=== PATIENT | male | born 1995 | race African-American/Black ===

== ENCOUNTER → 2017-03-19 | Outpatient (CLI) | payer BC, MEDICAID ==
[2017-03-19 13:36] LABS: CLARITY URINE CLEAR (CLEAR); COLOR URINE YELLOW (YELLOW); GLUCOSE URINE NEGATIVE (NEGATIVE); KETONES URINE NEGATIVE (NEGATIVE); LEUKOCYTE ESTERASE URINE NEGATIVE (NEGATIVE); NITRITE URINE NEGATIVE (NEGATIVE); OCCULT BLOOD URINE NEGATIVE (NEGATIVE); PROTEIN URINE NEGATIVE (NEGATIVE); SPECIFIC GRAVITY URINE 1.019 (1.005-1.030); UROBILINOGEN URINE 0.2 E.U./dL (0.2-1.0)
[2017-03-19 14:02] LABS: HEMATOCRIT. 43.2 % (42.0-52.0); HEMOGLOBIN. 14.9 g/dL (14.0-18.0); MEAN CORPUSCULAR HEMOGLOBIN 30.2 pg (28.0-32.0); MEAN CORPUSCULAR VOLUME 87.8 fL (80.0-94.0); MEAN PLATELET VOLUME 7.8 fl (7.4-10.4); PLATELET 239 x1000/uL (130-400); RED BLOOD CELL COUNT 4.92 mill/uL (4.7-6.1); RED CELL DISTRIBUTION WIDTH 13.4 % (11.6-14.6)
[2017-03-19 14:19] LABS: CARBON DIOXIDE 29 mEq/L (21-32); CHLORIDE 105 mEq/L (98-107); T4 FREE 1.06 ng/dL (0.76-1.46); TOTAL IRON BINDING CAPACITY 284 ug/dL (250-450)
[2017-03-19 14:34] LABS: PLATELET ESTIMATE NORMAL
[2017-03-20 09:08] LABS: VITAMIN D 25-OH 16.2 ng/mL (30.0-100.0)
[2017-03-20 12:20] LABS: FOLIC ACID (FOLATE) SERUM 16.3 ng/mL (>5.38)
[2017-03-23 09:06] LABS: THYROXINE BINDING GLOBULIN 24 ug/mL (13-39)
== END | disposition home or self-care (01) ==
LOC: LAB 13:14
PROVIDERS: ATTEND Internal Medicine Geriatric Medicine
DX: Z00.00 Encounter for general adult medical examination without abnormal findings (principal)
CPT/HCPCS: 36415; 80053; 81003; 82306; 82728; 82746; 83036; 83540; 83550; 84439; 84442; 84443; 84481; 85025; 86592; 86803; 87086; 87186

== ENCOUNTER 2017-08-19 10:20 | Emergency (ER) | payer BC, MEDICAID ==
[~2017-08-19] VITALS: Ht 175.3 cm; Wt 80.0 kg
[2017-08-19 11:05] LABS: HEMATOCRIT. 41.5 % (42.0-52.0); HEMOGLOBIN. 14.3 g/dL (14.0-18.0); MEAN CORPUSCULAR HEMOGLOBIN 29.9 pg (28.0-32.0); MEAN CORPUSCULAR VOLUME 87.1 fL (80.0-94.0); MEAN PLATELET VOLUME 7.3 fl (7.4-10.4); PLATELET 223 x1000/uL (130-400); RED BLOOD CELL COUNT 4.77 mill/uL (4.7-6.1)
[2017-08-19 11:10] LABS: CHLORIDE 105 mEq/L (98-107)
[2017-08-19 11:14] LABS: ETHANOL BLOOD < 10 mg/dL
[2017-08-19 11:26] LABS: PLATELET ESTIMATE NORMAL
[2017-08-19 13:12] LABS: CLARITY URINE CLEAR (CLEAR); COLOR URINE YELLOW (YELLOW)
[2017-08-19 13:13] LABS: KETONES URINE NEGATIVE (NEGATIVE); LEUKOCYTE ESTERASE URINE NEGATIVE (NEGATIVE); NITRITE URINE NEGATIVE (NEGATIVE); OCCULT BLOOD URINE NEGATIVE (NEGATIVE); PROTEIN URINE NEGATIVE (NEGATIVE); SPECIFIC GRAVITY URINE 1.017 (1.005-1.030); UROBILINOGEN URINE 0.2 E.U./dL (0.2-1.0)
[2017-08-19 13:30] LABS: *AMPHETAMINES SCREEN URINE NEGATIVE (NEGATIVE); *BARBITURATES SCREEN URINE NEGATIVE (NEGATIVE); *BENZODIAZEPINES SCREEN URINE NEGATIVE (NEGATIVE); *COCAINE SCREEN URINE NEGATIVE (NEGATIVE); CANNABINOID URINE SCREEN PRESUMTIVE POSITIVE (NEGATIVE); METHADONE URINE SCREEN NEGATIVE (NEGATIVE); OPIATES URINE SCREEN NEGATIVE (NEGATIVE); PHENCYCLIDINE URINE SCREEN NEGATIVE (NEGATIVE)
[2017-08-19 15:30] VITALS: BP 131/87
[2017-08-19] MEDS ORDERED: MIRTAZAPINE 15MG TABLET PO NR (15:30)
[2017-08-19] MEDS ORDERED: DIPHENHYDRAMINE 25MG CAPSULE PO ONE (15:30)
[2017-08-19] MEDS ORDERED: MIRTAZAPINE 15MG TABLET PO SCH (21:00)
== END 2017-08-19 16:00 | disposition home or self-care (01) ==
LOC: ER 11:34
DX: F32.9 Major depressive disorder, single episode, unspecified (principal); R45.851 Suicidal ideations; F12.10 Cannabis abuse, uncomplicated
CPT/HCPCS: 36415; 80053; 80305; 80307; 80329; 81003; 85025; 99284; G0482; Q0163